=== PATIENT | male | born 1990 | race Caucasian/White ===

== ENCOUNTER 2020-03-27 14:15 | Emergency (ER) | payer OTHER ==
[~2020-03-27] VITALS: Ht 167.6 cm; Wt 79.8 kg
[2020-03-27 14:22] VITALS: Ht 167.6 cm; Wt 79.8 kg
[2020-03-27 16:22] VITALS: BP 125/71
== END 2020-03-27 16:22 | disposition home or self-care (01) ==
LOC: ED 14:15
DX: S00.12XA Contusion of left eyelid and periocular area, initial encounter (principal); Z02.79 Encounter for issue of other medical certificate; W22.03XA Walked into furniture, initial encounter; Y93.89 Activity, other specified; Y92.89 Other specified places as the place of occurrence of the external cause; Y99.8 Other external cause status